=== PATIENT | male | born 1975 | race African-American/Black ===

== ENCOUNTER 2017-05-05 13:43 | Emergency (ER) | payer SELFPAY ==
[2017-05-05 13:54] VITALS: BP 152/90
[2017-05-05] MEDS ORDERED: LIDOCAINE HCL/EPINEPHRINE 30 ML VIAL IJ ONE (14:11)
--- NOTE | 2017-05-05 14:37 | ERNOTE ---
Integumentary HPI - Narrative Date of Service: 05/05/17 - General Presenting Symptoms: abscess Time Seen by Provider: 05/05/17 13:56 Source: patient, RN notes reviewed Exam Limitations: no limitations - Immun/Allergies/Home Medications Immunizations: IMMUNIZATION HX Immunizations Up to Date Yes History of Influenza Vaccine No Hx Pneumococcal Vaccination No Allergies/Adverse Reactions: Allergies Allergy/AdvReac Type Severity Reaction Status Date / Time No Known Allergies Allergy Verified 05/05/17 13:54 Home Medications: HOME MEDICATIONS NK [No Home Medication] 08/05/13 [Last Taken Unknown] - Pain Pain Score: 10 - History of Present Illness Narrative: 41 y/o male ambulatory to the ED for severe pain in his sacral region that woke him from sleep during the night last night. He denies any injury or prior history of back pain. He has not taken anything for pain. He also reports that the area feels swollen. Date (Duration): 05/05/17 Quality: Reports: painful Exposure: Reports: no cause identified Associated Symptoms: Reports: swelling/mass/lumps. Denies: fever Prior Treatment: Denies: recently seen Review of Systems - Review of Systems Constitutional: Absent: recent illness, fever, chills, malaise EYE: Present: no symptoms reported ENT: Present: no symptoms reported Respiratory: Present: no symptoms reported Cardiology: Present: no symptoms reported Gastrointestinal/Abdominal: Absent: nausea, abdominal pain Genitourinary: Present: no symptoms reported Musculoskeletal: Present: back pain. Absent: joint pain Skin: Present: lumps. Absent: rash, lesions Neurological: Absent: headache, dizziness/light-headedness, weakness, numbness, tingling Endocrine: Present: no symptoms reported Hematologic/Lymphatic: Present: no symptoms reported Psych: Present: no symptoms reported - Patient's Past Medical History Patient History - Medical: No pertinent hx Patient History - Cardiac/Respiratory: No pertinent hx Patient History - Cancer: No Hx of Cancer Patient History - Surgical Procedures: No surgical history Patient History - Other: None - Social History Living Situations: home Abuse History: No History of abuse Psych History: No pertinent hx Smoking Status: Current every day smoker Have you smoked in the past 12 months: Yes Alcohol Use: occasionally Drug Use: none - Immunizations Immunizations Up to Date: Yes Hx Pneumococcal Vaccination: No History of Influenza Vaccine: No Physical Exam - Physical Exam General Appearance: Present: wd/wn, alert, mild distress Respiratory: Present: no respiratory distress, normal breath sounds, no accessory muscle use, lungs clear Cardiovascular/Chest: Present: regular rate, rhythm, no murmur Back Exam: Present: normal range of motion, no CVA tenderness Extremity Exam: Present: normal inspection, normal range of motion, no edema Neurological Exam: Present: alert, oriented, normal mood/affect, no motor/ sensory deficits Skin Exam: Present: normal color, warm/dry, other - Moderate sized inflammed cyst at superior aspect of gluteal cleft just to the right of midline ED Progress - Vital Signs Patient's Vital Signs:: I have reviewed the patient's vital signs. Vital Signs: Vital Signs 05/05/17 13:51 Temperature 36.1 C L Pulse Rate 95 Respiratory 16 Rate Blood Pressure 152/90 O2 Sat by Pulse 99 Oximetry - Progress/Reassessment Chief Complaint: Back Pain Progress:: Improved Procedures Upper Medial Buttock Anesthesia: Lidocaine w/ Epi I & D Prep: betadine prep Blade Size: 11 Findings and Actions: purulent drainage moderate, probed/breakup loculation, packed with guaze Estimated blood loss (ml): 5 Complications: Pt luz procedure well Departure Clinical Impression: Pilonidal cyst with abscess - Departure Disposition: Home Follow Up Needed Condition: Stable Instructions: Incision and Drainage of a Pilonidal Cyst, Care After Additional Instructions: Remove packing in shower tomorrow and wash area well - then replace packing. You will need to do this daily until the wound is small enough that the packing no longer fits Cover with dressing as needed Tylenol and/or ibuprofen for pain Contact Dr. Payne's office tomorrow for follow-up Referrals: Tamika Payne MD [Staff Physician] -
== END 2017-05-05 14:45 | disposition home or self-care (01) ==
LOC: ER 13:43
PROC: 0H98XZZ Drainage of Buttock Skin, External Approach (ICD-10-PCS; principal; 2017-05-05)
DX: L05.01 Pilonidal cyst with abscess (principal); F17.200 Nicotine dependence, unspecified, uncomplicated